=== PATIENT | male | born 1990 | race Caucasian/White ===

== ENCOUNTER 2017-02-17 16:24 | Emergency (ER) | payer MEDICAID ==
[2017-02-17 16:33] VITALS: BP 135/93
--- NOTE | 2017-02-17 17:07 | EDM.PDOC ---
ED HPI GENERAL MEDICAL PROBLEM - General Chief Complaint: ENT Problem Stated Complaint: INFECTED TOOTH Time Seen by Provider: 02/17/17 16:50 Source of Information: Reports: Patient History Limitations: Reports: No Limitations - History of Present Illness INITIAL COMMENTS - FREE TEXT/NARRATIVE: Patient is a 18-year-old male presents ED complaining of pain to his teeth on the upper palate anteriorly. There is small cavity present on one of the teeth. Increased sensitivity noted with questionable swelling to the gumline. Right Face Pain Score (Numeric/FACES): 10 - Related Data Allergies Allergy/AdvReac Type Severity Reaction Status Date / Time No Known Allergies Allergy Verified 02/17/17 16:33 Home Meds: Home Meds Amoxicillin/Potassium Clav [Amox-Clav 875-125 mg Tablet] 1 tab PO BID 02/17/17 [ History] Lidocaine 2% [Xylocaine 2% Viscous] 15 ml PO Q6H PRN 02/17/17 [History] Past Medical History Gastrointestinal History: Reports: Other (See Below) Other Gastrointestinal History: liver tumor Genitourinary History: Reports: Renal Calculus - Past Surgical History GI Surgical History: Reports: Hernia, Inguinal Social & Family History - Family History Family Medical History: Noncontributory - Tobacco Use Smoking Status *Q: Never Smoker - Recreational Drug Use Recreational Drug Use: No ED ROS ENT - Review of Systems Review Of Systems: See Below Constitutional: Denies: Fever, Chills, Decreased Appetite HEENT: Reports: Dental Pain. Denies: Ear Pain GI/Abdominal: Denies: Nausea, Vomiting Musculoskeletal: Denies: Neck Pain ED EXAM, ENT - Physical Exam Exam: See Below Exam Limited By: No Limitations General Appearance: Alert, WD/WN, No Apparent Distress Ears: Normal External Exam, Normal Canal, Hearing Grossly Normal Nose: Normal Inspection, Normal Mucousa Mouth/Throat: Normal Inspection, Normal Gums, Normal Oropharynx, Dental Tenderness (Number seventh and eighth tooth. Small cavity noted to the superior border of the #8 tooth. No gum swelling. Pain with palpation.). No: Normal Teeth, Drooling, Dry Mucous Membrane, Trismus Head: Atraumatic, Normocephalic Neck: Normal Inspection, Supple, Non-Tender, Full Range of Motion Respiratory/Chest: No Respiratory Distress, No Accessory Muscle Use Cardiovascular: Normal Peripheral Pulses Extremities: Normal Inspection Neurological: Alert, Oriented, CN II-XII Intact, Normal Cognition, No Motor/ Sensory Deficits Course - Vital Signs Last Recorded V/S: Last Vital Signs Temp 98.7 F 02/17/17 16:31 Pulse 78 02/17/17 16:31 Resp 16 02/17/17 16:31 BP 135/93 H 02/17/17 16:31 Pulse Ox 98 02/17/17 16:31 - Re-Assessments/Exams Free Text/Narrative Re-Assessment/Exam: Patient has pain to the #8 and 7 tooth. Small cavity noted to the superior border of the eighth tooth. No swelling to the gumline present. No dental abscess present. Performed a anterior superior alveolar nerve block with almost complete resolution of pain. Patient is already on Augmentin that was initially prescribed yesterday at [facility]. In addition he is taking tramadol 50- 100 mg every 6 hours for pain along with ibuprofen and Tylenol. No additional prescriptions required at this time. Discharge instructions as documented. Departure - Departure Time of Disposition: 17:06 Disposition: Home, Self-Care 01 Condition: Good Clinical Impression: Dental caries, Dental caries extending into dentin, Pain, dental - Discharge Information Instructions: Tooth Injuries, [id number] Referrals: PCP,None [Primary Care Provider] - Forms: ED Department Discharge Additional Instructions: Continue taking the Augmentin as prescribed. Take the tramadol as needed for severe pain at night. Take ibuprofen 600 mg every 6 hours and Tylenol 650 mg every 6 hours in alternating fashion for pain. Follow-up with your dentist for definitive treatment. Return to ED as needed for any new or worsening symptoms.
== END 2017-02-17 17:12 | disposition home or self-care (01) ==
LOC: JD.ED 16:24
DX: K02.9 Dental caries, unspecified (principal); Z87.442 Personal history of urinary calculi; Z98.890 Other specified postprocedural states
CPT/HCPCS: 64400; 99283